=== PATIENT | male | born 1965 | race Caucasian/White ===

== ENCOUNTER 2023-02-01 10:12 | Emergency (ER) | payer OTHER ==
[~2023-02-01] VITALS: Ht 177.8 cm; Wt 97.5 kg
[2023-02-01 10:24] VITALS: BP 142/98
[2023-02-01] MEDS ORDERED: MECL25 PO (10:38)
[2023-02-01] MEDS ORDERED: Bactrim Ds Tab1 EACH PO (10:38)
== END 2023-02-01 10:53 | disposition home or self-care (01) ==
LOC: ER 10:12
DX: R42 Dizziness and giddiness (principal); H66.91 Otitis media, unspecified, right ear; Z88.0 Allergy status to penicillin
CPT/HCPCS: 99282

== ENCOUNTER 2025-07-19 11:26 | Day surgery (SDC) | payer OTHER ==
[~2025-07-19] VITALS: Ht 177.8 cm; Wt 93.1 kg
[~2025-07-19 11:26] MED LIST: Bactrim Ds Tab1 EACH PO; Bupivacaine 0.5% W/EPI 1:200000 SDV 30 ML Vial ONE; MECL25 PO
[2025-07-19] MEDS ORDERED: CeFAZolin Sodium 2,000 MG VIAL ONE (11:38)
[2025-07-19] MEDS ORDERED: Midazolam HCl 1MG / ML 2ML Vial ONE (13:09)
--- NOTE | 2025-07-19 13:48 | NUR ---
07/19/25 1348 Carolyn Rey POPLITEAL BLOCK ON LEFT SIDE STARTED AT 1344 PROCEDURE ENDED AT 1346. PT TOLERATED WELL. VSS.
[2025-07-19] MEDS ORDERED: Ondansetron HCl 2 MG / ML 2ML Vial ONE (13:53)
[2025-07-19] MEDS ORDERED: Metoclopramide HCl 5MG / ML 2ML Vial ONE (13:53)
[2025-07-19] MEDS ORDERED: Rocuronium Bromide 10 MG/ML 5ML Injection IV ONE ×2 (13:53→14:23)
[2025-07-19] MEDS ORDERED: FentaNYL Citrate 50 MCG/ML 2 ML Injection ONE ×2 (13:54→15:47)
[2025-07-19] MEDS ORDERED: Sugammadex Sodium 200 MG/2ML SDV (100 MG/ML) ONE (15:27)
[2025-07-19 16:21] VITALS: BP 118/84
[2025-07-19] MEDS ORDERED: OxyCODONE 5 mg/Acetamin 325 mg TABLET ONE (16:41)
--- NOTE | 2025-07-19 17:29 | NUR ---
07/19/25 1729 Damián Ward PT REPORTED 5/10, TOLERABLE PAIN UPON D/C. HE APPEARED ALERT AND RELAXED AND EXPRESSED READINESS TO RETURN HOME . HE WAS TALKATIVE AND LAUGHING.
== END 2025-07-19 17:20 | disposition home or self-care (01) ==
LOC: ORSCSDS 11:26
PROVIDERS: Podiatrist Foot & Ankle Surgery
PROC: 0LQT0ZZ Repair Left Ankle Tendon, Open Approach (ICD-10-PCS; principal; 2025-07-19 13:00)
PROC: 0SBG4ZZ Excision of Left Ankle Joint, Percutaneous Endoscopic Approach (ICD-10-PCS; principal; 2025-07-19 13:00)
PROC: 0MQR0ZZ Repair Left Ankle Bursa and Ligament, Open Approach (ICD-10-PCS; principal; 2025-07-19 13:00)
DX: M25.372 Other instability, left ankle (principal); M24.872 Other specific joint derangements of left ankle, not elsewhere classified; M65.872 Other synovitis and tenosynovitis, left ankle and foot; I10 Essential (primary) hypertension; K21.9 Gastro-esophageal reflux disease without esophagitis; Z87.891 Personal history of nicotine dependence; E78.5 Hyperlipidemia, unspecified
CPT/HCPCS: A6253; A9270; C1713; J0166; J0690; J2250; J2405; J2704; J2765; J3010; J7120